=== PATIENT | male | born 1995 | race Two or more races ===

== ENCOUNTER 2018-10-17 00:44 | Emergency (ER) | payer BC ==
[2018-10-17] MEDS ORDERED: LORazepam 1 MG Tab PO ONE (01:22)
[2018-10-17] MEDS ORDERED: LORazepam 1 MG Tab ONE (01:25)
--- NOTE | 2018-10-17 01:53 | EDM.PDOC ---
ED HPI GENERAL MEDICAL PROBLEM - General Chief Complaint: Behavioral/Psych Stated Complaint: SHAKEY CANT SLEEP Time Seen by Provider: 10/17/18 01:08 Headache Pain Score (Numeric/FACES): 4 - Related Data Allergies Allergy/AdvReac Type Severity Reaction Status Date / Time No Known Allergies Allergy Verified 10/17/18 00:55 Home Meds: Home Meds . [No Known Home Meds] 10/17/18 [History] Past Medical History Genitourinary History: Reports: Other (See Below) Other Genitourinary History: testicular torsion and had surgery Social & Family History - Tobacco Use Smoking Status *Q: Former Smoker Used Tobacco, but Quit: Yes Month/Year Tobacco Last Used: 10 months - Caffeine Use Caffeine Use: Reports: None - Recreational Drug Use Recreational Drug Use: No Course - Vital Signs Last Recorded V/S: Last Vital Signs Temp 36.6 C 10/17/18 00:50 Pulse 112 H 10/17/18 00:50 Resp 20 10/17/18 00:50 BP 152/91 H 10/17/18 00:50 Pulse Ox 100 10/17/18 00:50 - Orders/Labs/Meds Orders: Active Orders 24 hr Category Date Time Status EKG Documentation Completion [RC] STAT Care 10/17/18 01:21 Ordered LORazepam [Ativan] Med 10/17/18 01:22 Once 1 mg PO ONETIME ONE Departure - Departure Time of Disposition: 01:49 Disposition: Home, Self-Care 01 Clinical Impression: Anxiety reaction, Pain, dental - Discharge Information Referrals: PCP,None [Primary Care Provider] - Forms: ED Department Discharge - My Orders Last 24 Hours: My Active Orders 10/17/18 01:21 EKG Documentation Completion [RC] STAT 10/17/18 01:22 LORazepam [Ativan] 1 mg PO ONETIME ONE - Assessment/Plan Last 24 Hours: My Active Orders 10/17/18 01:21 EKG Documentation Completion [RC] STAT 10/17/18 01:22 LORazepam [Ativan] 1 mg PO ONETIME ONE
--- NOTE | 2018-10-17 06:42 | ER ---
CHIEF COMPLAINT: Shaky and anxious and dental pain. HISTORY OF PRESENT ILLNESS: The patient has been using Kratom. He has been using this for about a year, fairly steady dose and has not had problems with it. He has had intermittent problems with anxiety for many years, however. Tonight, he tried to go to sleep and awoke shortly after falling asleep with his mind racing. He became a little shaky and jittery and could not go back to sleep, so he came into the emergency room. He also complains of left upper dental pain. This has been going on and off for quite some time now. He knows he needs to get into the dentist to have this fixed. The patient denies any fevers or chills. He had a mild headache with this, but this seems to have resolved. The patient denies any illicit drugs or alcohol. He is just using the supplement. The patient has not had significant chest pain. He has had some mild intermittent twinges. He has had no shortness of breath, however, he is getting over which sounds like bronchitis. He has had no nausea or vomiting. No gastrointestinal symptoms. PAST MEDICAL HISTORY: For the most part, noncontributory except some intermittent anxiety. He had influenza this last year. He is not treated for any chronic conditions. REVIEW OF SYSTEMS: GENERAL: Negative for fevers, chills, headaches, or dizziness. ENT: Significant for tooth pain. No nasal congestion. No ear pain, hearing difficulties. Oropharynx, no difficulty with swallowing. NECK: No thyroid problems or other endocrine anomalies. CARDIOVASCULAR: No chest pain, chest pressure, breathing difficulty, or shortness of breath. No lower extremity edema. PULMONARY: No significant breathing problems. He had a little bit of a cough, and he is slowly getting over it. GASTROINTESTINAL: No abdominal pain, nausea, vomiting, constipation, diarrhea. PSYCHIATRIC: The patient is not suicidal, has no wishes to hurt or harm anyone. He denies depression. He does have some problems with some anxiety. PHYSICAL EXAMINATION: GENERAL: The patient appears stated age. VITAL SIGNS: Stable. Blood pressure is mildly elevated. O2 saturation, respiratory rate, and pulse are all normal. An EKG was done on this gentleman, which shows normal sinus rhythm without acute ST-T wave changes. He has a small RSR in V1 and V2, thought to be a normal variant, but no significant abnormalities noted on EKG. HEENT: Head: Normocephalic. Ears: Tympanic membranes normal color and contour. External ears and canals normal. Oropharynx: Moist mucosa. No evidence of erythema or exudate. Gums are irritated around his left upper molar tooth that is quite decayed. This is worse tenderness. NECK: Supple. No palpable neck masses. Thyroid is not palpable. LYMPHATICS: Nonpalpable. No neck masses. HEART: Regular rate and rhythm. No murmur. LUNGS: Clear. Respirations nonlabored. No wheezes, crackles, or rhonchi. SKIN: Normal. GASTROINTESTINAL: No abdominal pain. No rigidity, rebound, or guarding noted. No organomegaly noted. EXTREMITIES: Negative for varicosities or edema. NEUROLOGIC: The patient is alert and oriented, very cooperative with the course of the exam. COURSE IN THE EMERGENCY ROOM: The patient has had EKG done, which was unrevealing. He was given a milligram of Ativan and felt somewhat better after this. He was discharged home to rest before this had adequate time to fully pick effect per his request. I did discuss the Kratom with Poison Control. They concurred with disposition. ASSESSMENT: 1. Dental pain. 2. Anxiety reaction. PLAN: The patient is to follow up in the clinic within a week. He is to start the antibiotics as directed. I have cautioned the patient about continued use of the Kratom. MMODAL /[id number]
== END 2018-10-17 02:01 | disposition home or self-care (01) ==
LOC: JD.ED 00:44
DX: F41.9 Anxiety disorder, unspecified (principal); K02.9 Dental caries, unspecified
CPT/HCPCS: 93005; 99284; A9270; 93010; 99283

== ENCOUNTER 2019-05-06 04:18 | Emergency (ER) | payer BC ==
--- NOTE | 2019-05-06 04:53 | EDM.PDOC ---
ED HPI GENERAL MEDICAL PROBLEM - General Chief Complaint: Abdominal Pain Stated Complaint: WEAKNESS/BLADDER PAIN Time Seen by Provider: 05/06/19 04:31 Source of Information: Reports: Patient History Limitations: Reports: No Limitations - History of Present Illness INITIAL COMMENTS - FREE TEXT/NARRATIVE: Mr. Richardson is a very pleasant 23-year-old man with no chronic medical issues other than depression/anxiety, who states that he was driving around 04: 20 this morning, when he developed sudden onset left upper quadrant pain, ache cold sensation. The pain then expanded to the left side of his abdomen. Since it began, it has improved somewhat. He also reported having a momentary sharp suprapubic pain, that has not recurred. No recent fever or chills. No recent nausea, vomiting, constipation, diarrhea, or urinary symptoms. No urethral discharge. No prior similar symptoms. The patient did not take any over-the- counter medicines prior to coming to the ED. The patient states that he uses kratom about twice a week, most recently a few days ago, but he denies a prior use of opioids. The patient states that he drinks a sugar-free drink about 3 times a week, most recently yesterday. This does not typically cause him to have diarrhea or abdominal cramps. His last bowel movement was 05/04/2019, and was normal in consistency. The patient's PCP is Dr. Андрей Sheikh. The patient has not received an influenza vaccine this season, but agreed to receive one here. Left Upper Abdomen Pain Score (Numeric/FACES): 6 - Related Data Allergies Allergy/AdvReac Type Severity Reaction Status Date / Time banana Allergy Airway Verified 05/06/19 05:40 Tightness strawberry Allergy Rash Verified 05/06/19 05:41 Home Meds: Home Meds . [No Known Home Meds] 10/17/18 [History] Past Medical History Psychiatric History: Reports: Anxiety, Depression - Past Surgical History HEENT Surgical History: Reports: Tonsillectomy Male Surgical History: Reports: Other (See Below) (Detorsion and fixation of right testicular torsion) Social & Family History - Tobacco Use Smoking Status *Q: Current Some Day Smoker Years of Tobacco use: 7 Packs/Tins Daily Comment: Down from 08/12 ppd - Caffeine Use Caffeine Use: Reports: None - Alcohol Use Alcohol Use History: Yes Alcohol Use Frequency: Socially - Recreational Drug Use Recreational Drug Use: Yes Drug Use in Last 12 Months: Yes Recreational Drug Type: Reports: Marijuana/Hashish (last smoked when 14 yrs old) , Other (see below) (Takes kratom 2x/wk) - Living Situation & Occupation Living situation: Reports: Single, with Significant Other (Girlfriend) Occupation: Employed ([employer]) ED ROS GENERAL - Review of Systems Review Of Systems: Comprehensive ROS is negative, except as noted in HPI. ED EXAM, GI/ABD - Physical Exam Exam: See Below Exam Limited By: No Limitations General Appearance: Alert, WD/WN, No Apparent Distress Eyes: Bilateral: Normal Appearance, EOMI Ears: Normal External Exam, Hearing Grossly Normal Nose: Normal Inspection Throat/Mouth: Normal Inspection, Normal Lips, Normal Voice, No Airway Compromise Head: Atraumatic, Normocephalic Neck: Normal Inspection, Full Range of Motion Respiratory/Chest: No Respiratory Distress, Lungs Clear, Normal Breath Sounds, No Accessory Muscle Use Cardiovascular: Normal Peripheral Pulses, Regular Rate, Rhythm, No Edema, No Gallop, No JVD, No Murmur, No Rub GI/Abdominal Exam: Normal Bowel Sounds, Soft, No Organomegaly, No Distention, No Abnormal Bruit, No Mass, Tender (Mild, across the upper and down the left abdomen. Essentially nontender elsewhere.) (Male) Exam: Deferred Rectal (Males) Exam: Deferred Back Exam: Normal Inspection, Full Range of Motion. No: CVA Tenderness (L), CVA Tenderness (R) Extremities: Normal Inspection, Normal Range of Motion, No Pedal Edema, Normal Capillary Refill Neurological: Alert, Oriented, Normal Cognition, No Motor/Sensory Deficits Psychiatric: Normal Affect Skin Exam: Warm, Dry, Intact, Normal Color, No Rash Course - Vital Signs Last Recorded V/S: Last Vital Signs Temp 36.3 C 05/06/19 04:28 Pulse 73 05/06/19 04:28 Resp 20 05/06/19 04:28 BP 130/82 05/06/19 04:28 Pulse Ox 100 05/06/19 04:28 - Orders/Labs/Meds Orders: Active Orders 24 hr Category Date Time Status Influenza Vaccine Charge [RC] .DISCHARGE Care 05/06/19 04:47 Active KUB [Abdomen 1V Flat] [CR] Stat Exams 05/06/19 04:46 Taken Labs: Laboratory Tests 05/06/19 05/06/19 05/06/19 Range/Units 04:55 04:58 04:58 WBC 4.26 (4.23-9.07) K/mm3 RBC 4.99 (4.63-6.08) M/mm3 Hgb 15.4 (13.7-17.5) gm/dl Hct 43.5 (40.1-51.0) % MCV 87.2 (79.0-92.2) fl MCH 30.9 (25.7-32.2) pg MCHC 35.4 (32.2-35.5) g/dl RDW Std Deviation 39.1 (35.1-43.9) fL Plt Count 216 (163-337) K/mm3 MPV 10.3 (9.4-12.3) fl Neutrophils % (Manual) 49 (40-60) % Band Neutrophils % 2 (0-10) % Lymphocytes % (Manual) 36 (20-40) % Atypical Lymphs % 0 % Monocytes % (Manual) 9 (2-10) % Eosinophils % (Manual) 3 (0.8-7.0) % Basophils % (Manual) 1 (0.2-1.2) Platelet Estimate Adequate Plt Morphology Comment Normal RBC Morph Comment Normal Sodium 136 (136-145) mEq/L Potassium 4.0 (3.5-5.1) mEq/L Chloride 101 (98-107) mEq/L Carbon Dioxide 28 (21-32) mEq/L Anion Gap 11.0 (5-15) BUN 14 (7-18) mg/dL Creatinine 1.0 (0.7-1.3) mg/dL Est Cr Clr Drug Dosing 116.60 mL/min Estimated GFR (MDRD) > 60 (>60) mL/min BUN/Creatinine Ratio 14.0 (14-18) Glucose 97 (74-106) mg/dL Calcium 8.7 (8.5-10.1) mg/dL Total Bilirubin 0.4 (0.2-1.0) mg/dL AST 20 (15-37) U/L ALT 25 (16-63) U/L Alkaline Phosphatase 69 (46-116) U/L Total Protein 7.2 (6.4-8.2) g/dl Albumin 4.1 (3.4-5.0) g/dl Globulin 3.1 gm/dL Albumin/Globulin Ratio 1.3 (1-2) Lipase 81 (73-393) U/L Urine Color Yellow (Yellow) Urine Appearance Clear (Clear) Urine pH 5.5 (5.0-8.0) Ur Specific [place] > or = 1.030 (1.005-1.030) Urine Protein Trace H (Negative) Urine Glucose (UA) Negative (Negative) Urine Ketones Negative (Negative) Urine Occult Blood 1+ H (Negative) Urine Nitrite Negative (Negative) Urine Bilirubin Negative (Negative) Urine Urobilinogen 0.2 (0.2-1.0) Ur Leukocyte Esterase Negative (Negative) Urine RBC 0-5 (0-5) /hpf Urine WBC 0-5 (0-5) /hpf Ur Epithelial Cells 0-5 (0-5) /hpf Urine Bacteria Few (FEW) /hpf Urine Mucus Many H (FEW) /hpf Meds: Medications Discontinued Medications Generic Name Dose Route Start Last Admin Trade Name Orvilleq PRN Reason Stop Dose Admin Influenza Virus Vaccine 60 mcg 05/06/19 05:00 05/06/19 05:35 Fluzone Quad [id number] Syringe IM 05/06/19 05:01 60 mcg .ONCE ONE Administration - Re-Assessments/Exams Free Text/Narrative Re-Assessment/Exam: 05/06/19 04:47 The cause of the patient's abdominal pain is not immediately clear but his tenderness appears to be across his transverse and descending colon. It is unclear if chronic but occasional use of kratom can cause abdominal pain. I am recommending blood work, a urinalysis, and a KUB, but I am not recommending a CT scan at this time, given that his abdomen is soft with normoactive bowel sounds, and because his pain has only been present for less than 30 minutes, and has improved over that time. 05/06/19 05:28 The KUB appears to demonstrate stool throughout the colon. Otherwise nonspecific bowel gas pattern. Formal read per the Radiologist pending. 05/06/19 05:54 The patient's CBC is unremarkable. His CMP is unremarkable. His lipase level is within normal limits at 81. His urinalysis is unremarkable. 05/06/19 05:56 Test results discussed with the patient. I suspect that his abdominal pain is related to constipation. I am recommending that he take a promotility agent, such as milk of magnesia. The patient agreed. I will discharge him home. The patient will receive an influenza vaccine prior to discharge. Departure - Departure Time of Disposition: 05:57 Disposition: Home, Self-Care 01 Condition: Good Clinical Impression: Constipation - Discharge Information *PRESCRIPTION DRUG MONITORING PROGRAM REVIEWED*: Not Applicable *COPY OF PRESCRIPTION DRUG MONITORING REPORT IN PATIENT PERFECTO: Not Applicable Referrals: Андрей Sheikh Jr, MD [Primary Care Provider] - Forms: ED Department Discharge Additional Instructions: You were seen in the emergency room for abdominal pain. Workup in the ER included blood work, a urinalysis, and an x-ray of your abdomen. Your blood work and urinalysis were normal, however, the x-ray of your abdomen found stool throughout your colon. Based on your history, physical exam, and ER tests, the cause of your abdominal pain is most likely due to constipation. We recommend that you take a pro-motility agent, such as milk of magnesia, to help relieve your constipation. Follow-up with your PCP, Dr. Андрей Sheikh, as needed. If any other problems, please do not hesitate to return to the ER. *You received an influenza vaccine during your ER visit.* - My Orders Last 24 Hours: My Active Orders 05/06/19 04:46 KUB [Abdomen 1V Flat] [CR] Stat 05/06/19 04:47 Influenza Vaccine Charge [RC] .DISCHARGE - Assessment/Plan Last 24 Hours: My Active Orders 05/06/19 04:46 KUB [Abdomen 1V Flat] [CR] Stat 05/06/19 04:47 Influenza Vaccine Charge [RC] .DISCHARGE
[2019-05-06] MEDS ORDERED: FLU Vacc QS2019-20(6MOS+)/PF 60 MCG/0.5 ML SYRINGE IM ONE (05:00)
--- NOTE | 2019-05-06 07:06 | CR ---
Abdomen: Supine view of the abdomen was obtained. Comparison: No previous abdominal x-ray. Mild increased stool is noted throughout the colon. Bowel gas pattern is otherwise unremarkable. No abnormal calcifications or soft tissue abnormality is seen. Bony structures are unremarkable. Impression: 1. Slight increased stool throughout the colon. 2. No additional abnormality is seen on supine abdominal x-ray. Diagnostic code #2
== END 2019-05-06 06:05 | disposition home or self-care (01) ==
LOC: JD.ED 04:18
DX: K59.00 Constipation, unspecified (principal); F17.210 Nicotine dependence, cigarettes, uncomplicated; Z91.018 Allergy to other foods
CPT/HCPCS: 36415; 74018; 74018-26; 80053; 81001; 83690; 85007; 85027; 90471; 90686; 99282; 99285-25

== ENCOUNTER 2020-10-18 11:52 | Emergency (ER) | payer BC ==
[2020-10-18] MEDS ORDERED: Sodium Chloride 0.9% 1,000 ML IV ONE (12:20)
[2020-10-18] MEDS ORDERED: Sodium Chloride 0.9% 10 ML Syringe FLUSH PRN (12:20)
[2020-10-18] MEDS ORDERED: Ketorolac 30 MG/ML SDV IVPUSH ONE (12:31)
--- NOTE | 2020-10-18 13:22 | CR ---
Abdomen: Upright view of the abdomen was obtained. Comparison: Prior abdominal x-ray of 05/06/19. Bowel gas pattern appears normal. No abnormal calcifications or soft tissue abnormality is appreciated. Bony structures are unremarkable. Impression: 1. Unremarkable upright abdominal x-ray. Diagnostic code #1
--- NOTE | 2020-10-18 14:45 | EDM.PDOC ---
ED HPI GENERAL MEDICAL PROBLEM - General Chief Complaint: Abdominal Pain Stated Complaint: ABDOMINAL PAIN Time Seen by Provider: 10/18/20 12:09 Source of Information: Reports: Patient History Limitations: Reports: No Limitations - History of Present Illness INITIAL COMMENTS - FREE TEXT/NARRATIVE: The patient presents with abdominal pain, diarrhea and palpitations. This has been going on for about a week. He has no nausea or vomiting. He has no fever, chills, cough, chest pain or shortness of breath. He does notice palpitations. He says he will cough and it slows down. He still has his appendix and gallbladder. He admits to using Kratom and stopped about the same time the pain started. Onset: Gradual Duration: Week(s): Location: Reports: Abdomen Quality: Reports: Sharp Severity: Moderate Improves with: Reports: None Worsens with: Reports: None Associated Symptoms: Denies: Chest Pain, Cough, Fever/Chills, Headaches, Nausea/Vomiting, Shortness of Breath Bilateral Middle Abdominal Pain Score (Numeric/FACES): 5 - Related Data Allergies Allergy/AdvReac Type Severity Reaction Status Date / Time banana Allergy Airway Verified 10/18/20 12:05 Tightness strawberry Allergy Rash Verified 10/18/20 12:05 Home Meds: Home Meds cloNIDine [Catapres] 0.1 mg PO Q8H #15 tab 10/18/20 [Rx] Past Medical History - Past Health History Medical/Surgical History: Denies Medical/Surgical History Genitourinary History: Reports: Other (See Below) Other Genitourinary History: testicular torsion and had surgery Psychiatric History: Reports: Anxiety, Depression - Past Surgical History HEENT Surgical History: Reports: Tonsillectomy Male Surgical History: Reports: Other (See Below) Social & Family History - Family History Family Medical History: No Pertinent Family History - Tobacco Use Tobacco Use Status *Q: Current Every Day Tobacco User Years of Tobacco use: 5 Packs/Tins Daily: 1 Used Tobacco, but Quit: No Second Hand Smoke Exposure: No - Caffeine Use Caffeine Use: Reports: Energy Drinks, Soda - Recreational Drug Use Recreational Drug Use: No - Living Situation & Occupation Living situation: Reports: Single, with Significant Other (Girlfriend) Occupation: Employed ([employer]) ED ROS GENERAL - Review of Systems Review Of Systems: See Below Constitutional: Reports: No Symptoms HEENT: Reports: No Symptoms Respiratory: Reports: No Symptoms Cardiovascular: Reports: No Symptoms Endocrine: Reports: No Symptoms GI/Abdominal: Reports: Abdominal Pain, Diarrhea. Denies: Nausea, Vomiting : Reports: No Symptoms Musculoskeletal: Reports: No Symptoms Skin: Reports: No Symptoms ED EXAM, GI/ABD - Physical Exam Exam: See Below Exam Limited By: No Limitations General Appearance: Alert, No Apparent Distress Ears: Normal External Exam Nose: Normal Inspection Head: Atraumatic, Normocephalic Neck: Normal Inspection Respiratory/Chest: No Respiratory Distress, Lungs Clear, Normal Breath Sounds Cardiovascular: Regular Rate, Rhythm, No Edema, No Murmur GI/Abdominal Exam: Soft, Non-Tender, No Organomegaly, No Mass Back Exam: Normal Inspection #1 Interpretation EKG Date: 10/18/20 Time: 14:43 Rhythm: NSR Rate (Beats/Min): 65 [place]: Normal P-Wave: Present QRS: Normal ST-T: Elevated (Normal early repol) QT: Normal Course - Vital Signs Last Recorded V/S: Last Vital Signs Temp 96.5 F L 10/18/20 12:06 Pulse 82 10/18/20 12:06 Resp BP 129/77 10/18/20 12:06 Pulse Ox 95 10/18/20 12:06 - Orders/Labs/Meds Orders: Active Orders 24 hr Category Date Time Status Cardiac Monitoring [RC] . DIRECTED Care 10/18/20 12:19 Active EKG Documentation Completion [RC] ASDIRECTED Care 10/18/20 14:36 Active Holter Monitor 48 Hours [RC] .PRN Care 10/18/20 14:37 Active Peripheral IV Care [RC] . DIRECTED Care 10/18/20 12:20 Active UA RFX TRISTEN AND CULT IF INDIC [URIN] Stat Lab 10/18/20 12:50 Ordered Sodium Chloride 0.9% [Saline Flush] Med 10/18/20 12:20 Active 10 ml FLUSH ASDIRECTED PRN Peripheral IV Insertion Adult [OM.PC] Routine Oth 10/18/20 12:20 Ordered EKG 12 Lead [EK] Stat Ther 10/18/20 14:36 Ordered Medication Orders Sodium Chloride (Sodium Chloride 0.9% 10 Ml Syringe) 10 ml FLUSH ASDIRECTED PRN PRN Reason: Keep Vein Open Last Admin: 10/18/20 12:41 Dose: 10 ml Documented by: KISHAN Labs: Laboratory Tests 10/18/20 10/18/20 10/18/20 Range/Units 12:36 12:36 12:36 WBC 5.59 (4.23-9.07) K/mm3 RBC 5.13 (4.63-6.08) M/mm3 Hgb 15.7 (13.7-17.5) gm/dl Hct 44.8 (40.1-51.0) % MCV 87.3 (79.0-92.2) fl MCH 30.6 (25.7-32.2) pg MCHC 35.0 (32.2-35.5) g/dl RDW Std Deviation 39.2 (35.1-43.9) fL Plt Count 237 (163-337) K/mm3 MPV 11.1 (9.4-12.3) fl Neut % (Auto) 70.0 H (34.0-67.9) % Lymph % (Auto) 19.1 L (21.8-53.1) % [place] % (Auto) 9.7 (5.3-12.2) % Eos % (Auto) 0.4 L (0.8-7.0) Baso % (Auto) 0.4 (0.1-1.2) % Neut # (Auto) 3.92 (1.78-5.38) K/mm3 Lymph # (Auto) 1.07 L (1.32-3.57) K/mm3 [place] # (Auto) 0.54 (0.30-0.82) K/mm3 Eos # (Auto) 0.02 L (0.04-0.54) K/mm3 Baso # (Auto) 0.02 (0.01-0.08) K/mm3 Sodium 140 (136-145) mEq/L Potassium 3.8 (3.5-5.1) mEq/L Chloride 103 (98-107) mEq/L Carbon Dioxide 28 (21-32) mEq/L Anion Gap 12.8 (5-15) BUN 14 (7-18) mg/dL Creatinine 1.0 (0.7-1.3) mg/dL Est Cr Clr Drug Dosing 115.58 mL/min Estimated GFR (MDRD) > 60 (>60) mL/min BUN/Creatinine Ratio 14.0 (14-18) Glucose 93 (74-106) mg/dL Calcium 9.4 (8.5-10.1) mg/dL Magnesium 1.8 (1.8-2.4) mg/dl Total Bilirubin 0.9 (0.2-1.0) mg/dL AST 21 (15-37) U/L ALT 32 (16-63) U/L Alkaline Phosphatase 74 (46-116) U/L Total Protein 7.9 (6.4-8.2) g/dl Albumin 4.3 (3.4-5.0) g/dl Globulin 3.6 gm/dL Albumin/Globulin Ratio 1.2 (1-2) Urine Opiates Screen Negative (TVGYEU=857) Ur Buprenorphine Scrn Negative (CUTOFF=10) Ur Oxycodone Screen Negative (KWR9LJ=341) Urine Methadone Screen Negative (CLX4AZ=439) Ur Propoxyphene Screen Negative (SHEOVD=460) Ur Barbiturates Screen Negative (ULQNRD=606) Ur Tricyclics Screen Negative (GVAEAJ=043) Ur Phencyclidine Scrn Negative (CUTOFF=25) Ur Amphetamine Screen Negative (UBZFTL=681) U Methamphetamines Scrn Presumptive positive H (FLRRGS=186) U Benzodiazepines Scrn Negative (QEKRWP=174) U Cocaine Metab Screen Presumptive positive H (HEMHNW=348) U Marijuana (THC) Screen Negative (CUTOFF=50) Ethyl Alcohol 0.00 (0.00) gm% Meds: Medications Generic Name Dose Route Start Last Admin Trade Name Freq PRN Reason Stop Dose Admin Sodium Chloride 10 ml 10/18/20 12:20 10/18/20 12:41 Sodium Chloride 0.9% 10 Ml Syringe FLUSH 10 ml ASDIRECTED PRN Administration Keep Vein Open Discontinued Medications Generic Name Dose Route Start Last Admin Trade Name Freq PRN Reason Stop Dose Admin Sodium Chloride 1,000 mls @ 1,000 mls/hr 10/18/20 12:20 10/18/20 12:39 Normal Saline IV 10/18/20 13:19 1,000 mls/hr ONETIME ONE Administration Ketorolac Tromethamine 30 mg 10/18/20 12:31 10/18/20 12:40 Ketorolac 30 Mg/Ml Sdv IVPUSH 10/18/20 12:32 30 mg ONETIME ONE Administration - Re-Assessments/Exams Free Text/Narrative Re-Assessment/Exam: 10/18/20 14:47 I ordered an IV NS 1L bolus, toradol 30mg IV, labs, and an abdominal x-ray. The abdominal x-ray looks good. His CBC and CMP look good. His urine drug screen was presumptive positive for methamphetamines and cocaine. His ETOH is 0. He says he may have taken something Sunday night at an after alliance party. I ordered an EKG and it shows a NSR with no acute changes. I will get him on a holter monitor and see if we can catch his palpitations. I will also give him come clonidine for the kratom withdrawals. Departure - Departure Time of Disposition: 14:50 Disposition: Home, Self-Care 01 Condition: Good Clinical Impression: Opioid withdrawal, Palpitations Abdominal pain Qualifiers: Abdominal location: periumbilical Qualified Code(s): R10.33 - Periumbilical pain - Discharge Information *PRESCRIPTION DRUG MONITORING PROGRAM REVIEWED*: Not Applicable *COPY OF PRESCRIPTION DRUG MONITORING REPORT IN PATIENT PERFECTO: Not Applicable Prescriptions: cloNIDine [Catapres] 0.1 mg PO Q8H #15 tab Referrals: PCP,None [Primary Care Provider] - Forms: ED Department Discharge Additional Instructions: Take the clonidine 0.1mg by mouth 3 times per day for 3 days, then 0.1mg by mouth 2 times per day for 2 days and then 0.1mg by mouth daily for 2 days. Drink plenty of fluids. Wear the holter monitor for 48 hours and bring it back when done. Follow up with your doctor on Sunday. Please return if you are worse. Sepsis Event Note (ED) - Evaluation Sepsis Screening Result: No Definite Risk - Focused Exam Vital Signs: Vital Signs Temp Pulse BP Pulse Ox 10/18/20 12:06 96.5 F L 82 129/77 95 - My Orders Last 24 Hours: My Active Orders 10/18/20 12:19 Cardiac Monitoring [RC] . DIRECTED 10/18/20 12:20 Peripheral IV Care [RC] . DIRECTED Sodium Chloride 0.9% [Saline Flush] 10 ml FLUSH ASDIRECTED PRN Peripheral IV Insertion Adult [OM.PC] Routine 10/18/20 12:50 UA RFX TRISTEN AND CULT IF INDIC [URIN] Stat 10/18/20 14:36 EKG Documentation Completion [RC] ASDIRECTED EKG 12 Lead [EK] Stat 10/18/20 14:37 Holter Monitor 48 Hours [RC] .PRN - Assessment/Plan Last 24 Hours: My Active Orders 10/18/20 12:19 Cardiac Monitoring [RC] . DIRECTED 10/18/20 12:20 Peripheral IV Care [RC] . DIRECTED Sodium Chloride 0.9% [Saline Flush] 10 ml FLUSH ASDIRECTED PRN Peripheral IV Insertion Adult [OM.PC] Routine 10/18/20 12:50 UA RFX TRISTEN AND CULT IF INDIC [URIN] Stat 10/18/20 14:36 EKG Documentation Completion [RC] ASDIRECTED EKG 12 Lead [EK] Stat 10/18/20 14:37 Holter Monitor 48 Hours [RC] .PRN
== END 2020-10-18 15:05 | disposition home or self-care (01) ==
LOC: JD.ED 11:52
DX: R10.33 Periumbilical pain (principal); F11.23 Opioid dependence with withdrawal; R00.2 Palpitations; R19.7 Diarrhea, unspecified; Z72.0 Tobacco use; Z91.018 Allergy to other foods
CPT/HCPCS: 36415; 74018; 80053; 80306; 80307; 83735; 85025; 93005; 93225; 93226; 96374; 99285; J1885; J7030; 93010; 99284